=== PATIENT | male | born 1960 | race Caucasian/White ===

== ENCOUNTER 2016-11-20 11:47 | Emergency (ER) | payer MEDICARE ==
[~2016-11-20] VITALS: Ht 185.4 cm; Wt 100.0 kg
[~2016-11-20 11:47] MED LIST: ARIP15TA3 PO; ASPI325T2 PO; CLON1TAB PO; PROT40 PO; SERT100T PO; TYLENOL #3
[2016-11-20 12:24] VITALS: BP 121/82
== END 2016-11-20 14:21 | disposition left against medical advice (07) ==
LOC: ER 14:07
DX: R51 Headache (principal); R53.1 Weakness; F32.9 Major depressive disorder, single episode, unspecified; Z86.73 Personal history of transient ischemic attack (TIA), and cerebral infarction without residual deficits; Z88.0 Allergy status to penicillin

== ENCOUNTER 2016-12-01 09:12 | Emergency (ER) | payer MEDICARE, MEDICAID ==
[~2016-12-01] VITALS: Ht 177.8 cm; Wt 89.0 kg
[2016-12-01 09:21] VITALS: BP 132/81
== END 2016-12-01 13:29 | disposition home or self-care (01) ==
LOC: ER 11:31
DX: M25.511 Pain in right shoulder (principal); F17.210 Nicotine dependence, cigarettes, uncomplicated; Z88.0 Allergy status to penicillin; F32.9 Major depressive disorder, single episode, unspecified; Z86.73 Personal history of transient ischemic attack (TIA), and cerebral infarction without residual deficits; Z59.0 Homelessness
CPT/HCPCS: 73030; 73060; 73080; 99284